=== PATIENT | male | born 1995 | race Caucasian/White ===

== ENCOUNTER 2019-02-24 11:33 | Emergency (ER) | payer OTHER ==
[~2019-02-24] VITALS: Ht 177.8 cm; Wt 79.8 kg
[~2019-02-24 11:33] MED LIST: SEROQUEL25 MG
[2019-02-25] MEDS ORDERED: DICY20TA PO (04:20)
== END 2019-02-24 15:12 | disposition home or self-care (01) ==
LOC: ER 11:33
DX: R10.12 Left upper quadrant pain (principal)

== ENCOUNTER 2019-02-25 00:59 | Emergency (ER) | payer OTHER ==
[~2019-02-25] VITALS: Ht 177.8 cm; Wt 79.4 kg
[2019-02-25] MEDS ORDERED: DICY20TA PO (04:20)
== END 2019-02-25 04:52 | disposition home or self-care (01) ==
LOC: ER 00:59
DX: K29.70 Gastritis, unspecified, without bleeding (principal)